=== PATIENT | male | born 1955 | race African-American/Black ===

== ENCOUNTER 2019-05-17 09:13 | Inpatient (IN) | payer OTHER ==
[~2019-05-17] VITALS: Ht 180.3 cm; Wt 72.6 kg
[~2019-05-17 09:13] MED LIST: AUGMENTIN 875875 MG PO; GLUCOPHAGE500 MG PO; LISINOPRIL10 MG; NORCO 5-325 TA1 EACH PO
[2019-05-17 09:15] VITALS: BP 124/74
[2019-05-17 11:28] LABS: CALCIUM 9.4 mg/dL (8.5-10.1); POTASSIUM 4.3 mmol/L (3.5-5.1)
[2019-05-17 11:35] LABS: ALBUMIN 3.1 g/dL (3.4-5.0); DIRECT BILIRUBIN 0.2 mg/dL (<0.1-0.2)
[2019-05-17 11:40] LABS: ABSOLUTE NEUTROPHILS 14.8 thou/uL (1.4-8.2); BASOPHILS 0.9 % (0.0-2.0); EOSINOPHILS 0.5 % (0.0-3.0); HEMATOCRIT 41.2 % (42.0-52.0); HEMOGLOBIN 13.2 gm/dL (14.0-18.0); LYMPHOCYTES 7.3 % (24.0-44.0); MCH 23.4 pg (26.0-34.0); MCV 73.1 fL (80.0-100.0); MONOCYTES 6.5 % (1.0-8.0); PLATELET COUNT 330 thou/uL (150-400); POLYS 84.8 % (36.0-66.0); RBC 5.64 mil/uL (4.50-6.00); RDW 15.3 % (10.5-14.5); WBC 17.5 thou/uL (4.0-11.0)
[2019-05-17 13:47] LABS: URINE BLOOD NEGATIVE (Negative); URINE CLARITY CLEAR; URINE COLOR YELLOW; URINE GLUCOSE-RANDOM* 3+ (Negative); URINE KETONES 1+ (Negative); URINE LEUKOCYTES-REFLEX NEGATIVE (Negative); URINE NITRITE-REFLEX NEGATIVE (Negative); URINE PROTEIN (DIPSTICK) TRACE (Negative); URINE UROBILINOGEN >= 8.0 E.U./dl (0.2-1.0)
[2019-05-17 13:54] LABS: ICTOTEST (BILI CONFIRMATORY) Negative (Negative); URINE BILIRUBIN NEGATIVE (Negative)
[2019-05-17 14:09] VITALS: BP 124/70
[2019-05-17] MEDS ORDERED: HUMALOG100 UNIT/1 SUBQ (14:42)
[2019-05-17] MEDS ORDERED: NEURONTIN300 MG PO (14:43)
[2019-05-17] MEDS ORDERED: LANTUS SUBQ (14:43)
[2019-05-17 14:52] VITALS: BP 107/62
[2019-05-17 15:15] VITALS: BP 133/67
[2019-05-17 19:59] VITALS: BP 121/61
--- NOTE | 2019-05-17 20:25 | NUR ---
ASSSUMED CARE OF PATIENT APPROX 1600. PT A&oX4, VSS, DENIES PAIN. WOUND CARE IN TO SEE RIGHT TOE WOUND. PATIENT HAS NON PRODUCTIVE COUGH, LUNGS CLEAR. NO SIGNS OF DISTRESS. WILL CONTINUE TO MONITOR.
--- NOTE | 2019-05-18 02:39 | NUR ---
ASSUMED CARE OF PT AT 1900HRS. PT IS AOX4 AND LETS NEEDS BE KNOWN. FALL PRECAUTION IN PLACE. WOUND CARE COMPLETED AND PICTURES TAKEN. ABX TREATMENT CONTINUED. PT DENIED PAIN, NAUSEA OR SOA. PT WAS STEPHANI TO GET COMFORTABLE AND SLEEP PART OF THE SHIFT. VSS AND NO S/S OF ACUTE DISTRESS. WILL CONTINUE TO MONITOR.
--- NOTE | 2019-05-18 11:33 | NUR ---
Received awake on bed. Due medication
--- NOTE | 2019-05-18 13:02 | NUR ---
Received awake on bed. Due medications given as prescribed. On room air. Vital signs stable. On nothing per orem- pt informed and aware. A+Ox4. On blood sugar monitoring- taken and recorded accordingly, with sliding scale prescribed. With NS at 75cc/hr, infusing well at R FA. Pt able to ambulate with AO1. With wound at R big toe- dressing in place. Falls bundle in place. With relative at bedside. Ortho PA called- a/w MRI results, for possible OR today. Pt seen by Dr Marie, informed re: possible surgery- physician explained re: surgical procedure to patient and relative. Pt seen by Dr Fraga- explained procedure to them, consent to be signed. Pre-op staff informed that we are having issues printing consent, even went to the other brennan to print but still unable to print consent; pt went down, pre-op staff Sarha informed re: no consent signed prior to coming down to OR. To continue monitoring patient.
[2019-05-18 14:15] VITALS: BP 104/66
--- NOTE | 2019-05-18 14:25 | HC ---
[facility] [place] [address] CONSULTATION Name: EVE TAMEZ Renzo Room #: 459- ADM IN M.R.#: [id number] Admission: 05/17/19 Attend Phys: Umu Marie MD Discharge: Date of : 51 Report #: [id number] THIS REPORT FOR: cc: LAURA - No family physician/PCP LAURA - No family physician/PCP Cristobal Baca MD ~ CC: Umu Marie [facility] physician/PCP Jos Cristina DATE OF SERVICE: 05/17/2019 CHIEF COMPLAINT: Diabetic toe infection. HISTORY OF PRESENT ILLNESS: This is a 64-year-old male patient with a history of diabetes over the last 10 years, who has developed pain and swelling and drainage from his right great toe over the last 2-3 weeks, but more pronouncedly over the last several days. He denies any pain as he has significant peripheral neuropathy. Denies any fever or chills, but is concerned with the amount of swelling. PAST MEDICAL HISTORY: Positive for type 2 diabetes mellitus, hypertension and hypercholesterolemia. MEDICATIONS: Include Augmentin, Indiahoma, metformin, Lisinopril. ALLERGIES: No known drug allergies. SOCIAL HISTORY: Negative for alcohol or tobacco use. FAMILY HISTORY: Noncontributory. REVIEW OF SYSTEMS: CONSTITUTIONAL: The patient denies fever, chills, or weight loss. NEUROLOGICAL: The patient does have peripheral neuropathy. Denies focal weakness, numbness or tingling. EYES: The patient denies visual changes, redness, or drainage. ENT: The patient denies earache, nasal drainage, sore throat. CARDIOVASCULAR: The patient denies chest pain, palpitations or diaphoresis. PULMONARY: The patient denies cough or shortness of breath. GASTROINTESTINAL: The patient denies nausea, vomiting, diarrhea or abdominal pain. ORTHOPEDIC: The patient does complain of pain, swelling and drainage from his right great toe. GENITOURINARY: The patient denies frequency or urgency of urination. Denies dysuria. [facility] [address] [place] [address] CONSULTATION Name: EVE TAMEZ Room #: [address] [place] [address] [place] [facility].#: [id number] Admission: 05/17/19 Attend Phys: Umu Marie MD Discharge: Date of : 51 Report #: [id number] ENDOCRINE: The patient denies heat or cold intolerance, polydipsia, polyphagia, polyuria. PSYCHIATRY: The patient denies anxiety, irritability or depression. Other systems in a 14-point review of systems are negative. PHYSICAL EXAMINATION: VITAL SIGNS: At this time include temperature 36.9, pulse 109, respiratory rate 13, blood pressure 124/70. GENERAL: This is a well-developed male patient who appears to be in minimal distress. HEENT: Head normocephalic. Nose and throat are clear. NECK: Supple. LUNGS: Clear. HEART: Regular. ABDOMEN: Bowel sounds present. Soft, nontender. EXTREMITIES: Lower extremities demonstrate easily palpable distal pulses. He has a very swollen right great toe. The nail is absent. There is a separation between the distal portion of the toe and the distal nail bed with a large amount of purulent drainage from this area. I am able to probe this area. I cannot directly probe to bone, but it does appear to be close. There appears to be some maceration of the skin, once again significant swelling and possible fluctuance on the pad of the great toe. NEUROLOGIC: The patient is alert and oriented and appropriate. LABORATORY DATA: Include white blood cell count 17.5 with a hemoglobin 13.2, hematocrit 41.2. Sodium 131, potassium 4.3, chloride 95, CO2 26, BUN 9, creatinine 1.0, glucose is 259. Lactic acid 1.3, calcium is 9.4, total bilirubin 1.0, direct bilirubin 0.2, alkaline phosphatase 96, total protein 10.0, albumin is 3.1. CLINICAL IMPRESSION: 1. Cellulitis and wound infection to the right great toe. 2. Diabetes mellitus with peripheral neuropathy. 3. Possible abscess and osteomyelitis of the right great toe. Also, evidence of an acute comminuted intra-articular fracture of the distal phalanx of the great toe with fracture lines extending into the interphalangeal joint. Venous Doppler was obtained, which showed no evidence of DVT. 4. Hypertension. 5. Hyperlipidemia. 6. Diabetes mellitus with hyperglycemia. RECOMMENDATIONS: At this point in time, we will recommend dry gauze dressings for now. Recommend an MRI of the right foot. Recommend check sed rate and CRP. He will likely require some surgical intervention, will consult Orthopedics. He will need aggressive nutritional support for both wound healing and glycemic [address] [address] CONSULTATION Name: EVE TAMEZ Room #: 459-P [facility] IN M.R.#: [id number] Admission: 05/17/19 Attend Phys: Umu Marie MD Discharge: Date of : 51 Report #: [id number] control. We will check an arterial Doppler as well. I appreciate being asked to see the patient in consultation. <ELECTRONICALLY SIGNED> By: Cristobal Baca MD 05/18/19 1425 1652 0017 Cristobal Baca MD /nt
[2019-05-18 14:30] VITALS: BP 105/65
[2019-05-18 15:00] VITALS: BP 100/49
[2019-05-18 15:30] VITALS: BP 117/65
[2019-05-18 19:22] VITALS: BP 123/70
--- NOTE | 2019-05-19 01:59 | NUR ---
PT IS A/O X4.PT CARE ASSUMED WITH PT IN BED AND APPEARED TO BE SLEEPING.PT USES URINAL.PT HAD RT GREAT TOE AMPUTATED.DRESSING FROM SURGERY IN PLACE AND I/D/C.PT IS ACCUSCHECK ACHS.PT D/C IV ON RFA AND PRESENTLY HAS IV ON LT HAND WITH NS AT 100ML/HR.PT APPEARED TO BE IN NO DISTESS ,DENIED N/V.WILL CONTINUE TO MONITOR PER POC
[2019-05-19 06:12] LABS: HEMATOCRIT 35.3 % (42.0-52.0)
[2019-05-19 06:31] LABS: HEMOGLOBIN 10.9 gm/dL (14.0-18.0)
[2019-05-19 06:49] LABS: POTASSIUM 3.8 mmol/L (3.5-5.1)
[2019-05-19 07:50] VITALS: BP 128/73
--- NOTE | 2019-05-19 11:41 | NUR ---
Recommend obtain HgbA1C level to determine pts level glucose control.
--- NOTE | 2019-05-19 13:06 | NUR ---
PT ADMITTED RELATED TO TOE WOUND, DM. CM REVIEWED CHART AND SPOKE WITH CARE TEAM. CM MET WITH PT AT BEDSIDE THIS DAY. PT IS A&O X4. C MRCHARLENE INTRODUCED. 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 PT INDICATED THERE ARE 7 STEPS TO ENTER AND NO STEPS INSIDE. PT INDICATED HE HAD USED A CANE TO ASSIST WITH MOBILITY PIPE ORGAN MECHANIC. PT INIDCATED NO PCP OR HH HX. PT GIVEN A [facility] PACKET FOR FOLLOW UP CARES UPON DC. PT HAS MEDICARE PART A ONLY. PT INDICATED HE WOULD BE ABLE TO FILL ANY PERSCRIPTIONS HE MIGHT BE GIVEN UPON DC. PT INIDCATED HE PLANS TO RETURN HOME ONCE MEDICALLY STABLE. CM TO FOLLOW INIDCATED WITH DC PLANNING.
[2019-05-19 14:32] VITALS: BP 116/60
[2019-05-19 20:29] VITALS: BP 118/75
--- NOTE | 2019-05-19 22:12 | HC ---
[facility] [place] [address] CONSULTATION Name: EVE TAMEZ Room #: 459-P ADM IN M.R.#: [id number] Admission: 05/17/19 Attend Phys: Umu Marie MD Discharge: Date of : 51 Report #: [id number] THIS REPORT FOR: cc: LAURA - No family physician/PCP LAURA - No family physician/PCP Fran Pearl MD ~ CC: Umu Marie [facility] physician/PCP Jos Cristina DATE OF SERVICE: 05/18/2019 INFECTIOUS DISEASES CONSULTATION REASON FOR CONSULTATION: I was asked to evaluate concerning diabetic foot infection. HISTORY OF PRESENT ILLNESS: A 64-year-old with underlying diabetes. He has had right great toe wound for the last several weeks, which has progressively worsened along with swelling into the right foot and lower leg. We have been treating this with peroxide. No antibiotic therapy. Due to the increased pain and inability to ambulate, he presented to the Emergency Room for further evaluation. Denies any fever, chills or sweats. He has had no report of trauma. He is a known diabetic. Diabetic control has been poor. Denies any cardiac history, stroke or kidney disease. REVIEW OF SYSTEMS: A 10-point review of system was negative other than what has been described above. ALLERGIES: None known. MEDICATIONS: As noted on his MAR including metformin and lisinopril prior to his admission and currently on vancomycin and Zosyn. PAST MEDICAL HISTORY: Hypertension, diabetes, hyperlipidemia. FAMILY HISTORY: Noncontributory. SOCIAL HISTORY: Nonsmoker. No significant alcohol intake. He is retired from the school district. PHYSICAL EXAMINATION: VITAL SIGNS: He was afebrile and hemodynamically stable. GENERAL: He is alert and cooperative and pleasant, in no acute distress. EXTREMITIES: The right foot was dressed and dry. He is status post right first toe and head of the transmetatarsal amputation performed earlier today. He has [facility] [address] [place] [address] CONSULTATION Name: JOIEVE Muller Room #: 459[facility] IN [facility].#: [id number] Admission: 05/17/19 Attend Phys: Umu Marie MD Discharge: Date of : 51 Report #: [id number] some erythema involving the lower leg below the knee. Moderate tenderness in his lower leg region and 1+ edema. EYES: Without scleral icterus. MOUTH: Without mucositis. NECK: Supple, with no thyromegaly or mass. No palpable adenopathy. CHEST: Clear. HEART: Regular, without murmur, gallop or rub. ABDOMEN: Soft and nontender with no hepatosplenomegaly or mass. EXTERNAL GENITALIA AND RECTAL: Not performed. NEUROLOGIC: Cranial nerves were intact. Sensation in his left lower extremity was diminished to fine touch. Strength in his upper and lower extremities was symmetric and within normal limits. PSYCHIATRIC: Mood was normal. LABORATORY STUDIES: Reviewed. MICROBIOLOGY: Reviewed. MRI scan and ultrasound of the arteries involving the right lower extremity was reviewed. IMPRESSION: A 64-year-old with diabetes, peripheral neuropathy, presents with a right great toe osteomyelitis with associated abscess. So far, group B Streptococcus is the predominant pathogen. I am awaiting further culture results. He is postoperative day #1 from amputation of the right first toe and metatarsal head performed by Dr. Tone Fraga. RECOMMENDATIONS: We will continue IV antibiotic therapy. We will arrange home IV therapy or long term therapy once cultures are back. He will need IV access for post-acute care. He will require close diabetic management and wound care. <ELECTRONICALLY SIGNED> By: Fran Pearl MD 05/19/19 2212 [id number] 0012 Fran Pearl MD /nt
--- NOTE | 2019-05-20 03:49 | NUR ---
Pt. rested quietly at intervals during the night when checked on during frequent rounds. He offers no c/o pain. Dressing to right lower extremity is dry and intact. Bed alarm is on.
[2019-05-20 08:02] VITALS: BP 153/84
[2019-05-20 10:01] LABS: ABSOLUTE NEUTROPHILS 12.8 thou/uL (1.4-8.2); BASOPHILS 0.6 % (0.0-2.0); EOSINOPHILS 1.4 % (0.0-3.0); HEMATOCRIT 36.4 % (42.0-52.0); HEMOGLOBIN 11.4 gm/dL (14.0-18.0); LYMPHOCYTES 9.5 % (24.0-44.0); MCH 23.1 pg (26.0-34.0); MCHC 31.5 g/dL (28.0-37.0); MCV 73.3 fL (80.0-100.0); MONOCYTES 6.3 % (1.0-8.0); PLATELET COUNT 329 thou/uL (150-400); POLYS 82.2 % (36.0-66.0); RBC 4.96 mil/uL (4.50-6.00); WBC 15.6 thou/uL (4.0-11.0)
[2019-05-20 10:15] LABS: CALCIUM 8.4 mg/dL (8.5-10.1); CREATININE 0.9 mg/dL (0.7-1.3)
--- NOTE | 2019-05-20 13:21 | NUR ---
SAAD reviewed chart and spoke with nursing and attending physician. Pt is s/p toe amputation. Pt is progressing well towards goals for discharge. Discharge home is anticipated for tomorrow. Pt will need services for dressing changes. SAAD met with pt and s/o, Nanette, at bedside. Pt and s/o were unaware of anticipated discharge. SAAD explained HH services. Pt is agreeable. Options discussed with pt. No preference voiced for HH provider. Pt's s/o asked about meeting with someone to discuss Medicaid application. Pt only has Medicare Part A. No Part B or Part D. Pt has diabetes and will need assistance with medications. SA[facility] and requested [facility] to follow up with pt's s/o. planner intern to fax referral to [facility] for review. SAAD is following to assist as needed with discharge planning.
--- NOTE | 2019-05-20 15:42 | NUR ---
FAXED REFERRAL TO [facility] SPOKE WITH EDWIN IN INTAKE SHE RECEIVED REFERRAL AND CAN ACCEPT BUT PT WILL NEED PCP TO FOLLOW. NOTIFIED SW (CLEMENTINA) AND SHE WILL LOOK INTO THIS. ANTICIPATE DC TOMORROW.
[2019-05-20 20:30] VITALS: BP 108/55
--- NOTE | 2019-05-20 20:44 | NUR ---
PT A&oX4, VSS, PAIN IN RIGHT FOOT. DRESSING CHANGED TO RIGHT FOOT. FAMILY AT BEDSIDE. NO SIGNS OF DISTRESS. WILL CONTINUE TO MONITOR.
--- NOTE | 2019-05-20 23:06 | PATH ---
[facility] [address] [place] [address] PATHOLOGY RPT PROCEDURE Name: JOIEVE Muller Room #: 459-P ADM IN M.R.#: [id number] Admission: 05/17/19 Date of : 51 Discharge: Report #: [id number] Path Case #: [id number] [facility] Accession Number: [id number] . 01 Material submitted: . toe - RIGHT GREAT TOE. Modifiers: right . 01 Clinical history: . Osteomyelitis right great toe . 02 Diagnosis: Bone "right great toe", amputation: - Skin with deep penetrating ulceration with gangrenous-type of necrosis with acute inflammation and microabscess formation extending into the underlying bone with acute and chronic osteomyelitis. - See comment. LBQ 05/20/2019 2210 Local . 02 Comment: The inked bone margins appear viable without any evidence of acute inflammation. However, the dermis of the skin black ink margin reveals acute inflammation and gangrenous-type of necrosis. Suggest clinical correlation and follow-up. (SANAZ/db; 05/20/2019) . 02 Electronically signed: . Stanton Monroy MD, Pathologist NPI- [id number] . 01 Gross description: . The specimen is received in formalin, labeled "Eve Tamez, right great toe". Received is an amputated digit measuring 6.3 x 3.6 x 3.5 cm in greatest dimensions. The bone margin is smooth and concave in appearance, consistent with disarticulation. The bone and soft tissue margins are inked black. The nail is absent. At the distal aspect of the specimen, there is a poorly circumscribed, irregular in contour and white-lopez to light brown lesion measuring 2.8 x 1.5 cm, which is 2.0 cm from the closest skin margin. On the lateral aspect of the specimen, there is a secondary lesion which is well from, depressed and joaquin-lopez measuring 3.0 x 1.1 cm, which is 1.3 cm from the closest skin margin. A full-thickness longitudinal cross-section is submitted from proximal to distal aspects in cassettes A1 through A3, following decal six. . Also received within the specimen container is an additional segment of bone displaying one smooth disarticulation margin and one blunt transected margin, measuring 2.4 x 2.3 x 1.5 cm in greatest dimensions. The transected margin is inked black. A full-thickness [place] [address] PATHOLOGY RPT PROCEDURE Name: EVE TAMEZ Room #: 459-P ADM IN M.R.#: [id number] Admission: 05/17/19 Date of : 51 Discharge: Report #: [id number] Path Case #: [id number] submitted in cassette A4, following decalcification. (CAA; 05/19/2019) QAC/QAC 05/20/2019 1530 Local . 02 Pathologist provided ICD-10: I96, M86.171, M86.671 . 02 CPT . 193847, [id number] Specimen Comment: A courtesy copy of this report has been sent to [phone] Specimen Comment: Report sent to DR LIN Performed at: [address], [place] [id number] MD Ranjith Martinez MD Phone: [phone] Performed at: [address], [place], [place] [id number] MD Angelica Cervantes MD Phone: [phone]
--- NOTE | 2019-05-21 03:03 | NUR ---
Pt. rested quietly all shift when checked on during frequent rounds. He offers no c/o pain. Dressing to his right lower extremity is dry and intact. Bed alarm is on.
[2019-05-21 08:03] VITALS: BP 135/83
--- NOTE | 2019-05-21 13:06 | NUR ---
VASCULAR ACCESS NURSE ROUNDING THIS AM TO PLACE PICC ORDERED AT 0900. THE PATIENT WAS CONCERNED HE HAD NOT BEEN INFORMED HE WAS GETTING A PICC AND REFUSED THE LINE AT THIS TIME UNTIL CLARIFICATIONS CAN BE MADE. PATIENT STATED HE WAS NOT AWARE OF HOME IV ANTIBIOTICS OR HOME HEALTH PLANS. SPOKE TO SHELLY SAMANIEGO AND SHE IS TO CALL IV TEAM LATER TODAY IF PATIENT CONSENTS TO LINE PLACEMENT.
[2019-05-21] MEDS ORDERED: ACIDOPHILUS1 EAC4 PO (14:10)
[2019-05-21] MEDS ORDERED: BENZONATATE100 MG PO (14:10)
[2019-05-21] MEDS ORDERED: GLIPIZIDE 10 MG10 MG PO (14:10)
[2019-05-21] MEDS ORDERED: LANTUS SUBQ (14:10)
--- NOTE | 2019-05-21 16:27 | NUR ---
CM FOLLOWED UP WITH PT AND SPOUSE THIS AM AND DISCUSSED HOME INFUSION, OUTPAITNET INFUSION, SKILLED OPTIONS. CM SENT REFERRAL TP [facility] WITH THEIR PERMISSION AND THEY WOULD OWE $60.00 PER DAY FOR HOME INFUSION. PT AND SPOUSE INDICATED THEY PREFERRED PT GO SKILLED UPON DC. REFERRALS SENT TO [facility], [facility], [facility]. [facility] INDICATED THEY COULD ACCEPT PT. CM NOTIFIED SPOUSE SHE IS AWARE AND AGREEABLE. [phone]. CHART COPY ORDERED. ORDERS TO BE FAXED. REPORT TO BE CALLED TO . NO OTHER CM INTERVENTION INDICATED. CASE CLOSED.
--- NOTE | 2019-05-21 17:09 | NUR ---
CONSULTED TO PLACE A PICC. AFTER CONSENT WAS SIGNED AND RISK AND BENIFITS DISCUSSED A #4F SINGLE LUMEN POWER PICC WAS PLACED AFTER A BEDSIDE TIMEOUT WAS COMPLETED. THE LINE WAS TRIMMED TO 44CM AND ADVANCED WITHOUT DIFFICULTY. A STAT CHEST XRAY WAS ORDERED FOR CONFIRMATION
--- NOTE | 2019-05-21 21:12 | NUR ---
Received awake on bed. Due medications given as prescribed, able to swallow meds w/o difficulty. On room air. Vital signs stable. On carb controlled diet; pt needs encouragement in eating and drinking. On blood sugar monitoring, taken and recorded accordingly; with sliding scale insulin prescribed. Able to use urinal and go to the bathroom using walker, standby assist and gait belt. With SL at L hand- intact and flushing well, on IV antibiotics. With dressing on R great toe- dressing changed today. Visited by his today. Falls bundle in place. Asssisted in ADLs. Pt for PICC line insertion, IV nurse went to insert line but pt said he is not aware and physician did not it to him, unable to obtain consent; as per IV nurse a/w physician rounds then will come back to insert PICC line. Pt complained of cough- Dr Marie informed. Pt seen and examined, complaints addressed to physican. CM went to talk to pt and his . PICC line place this afternoon by IV nurse. Staff nurse Martin took over patient's care at 1500. Report given to Staff Lemus for pt's facility as nurse who took over just had the patient from 1500 only.
--- NOTE | 2019-05-24 14:29 | O ---
[facility] [place] [address] OPERATIVE REPORT Name: EVE TAMEZ Renzo Room #: 459-P [facility] IN M.R.#: [id number] Admission: 05/17/19 Attend Phys: Umu Marie MD Discharge: 05/21/19 Date of : 51 Report #: [id number] THIS REPORT FOR: cc: LAURA - No family physician/PCP LAURA - No family physician/PCP Tone Fraga MD ~ CC: Umu Marie [facility] physician/PCP Jos Cristina DATE OF SERVICE: 05/18/2019 PREOPERATIVE DIAGNOSIS: Right great toe osteomyelitis. POSTOPERATIVE DIAGNOSIS: Right great toe osteomyelitis. PROCEDURE: Right great toe amputation through the metatarsal distally. SURGEON: Dr. Tone Fraga. ANESTHESIA: General. ESTIMATED BLOOD LOSS: Minimal. DRAINS: No drains. TOURNIQUET TIME: 30 minutes. DESCRIPTION OF PROCEDURE: The patient brought to the operating room where he was placed under general anesthesia. Once under adequate general anesthesia, his right lower extremity was prepped and draped in sterile manner. The extremity was elevated and tourniquet placed to 250 mmHg. A racquet-shaped incision was made about the base of the proximal phalanx of the great toe extending proximally along the metatarsal approximately 3 cm. This was sharply dissected down to the base of the proximal phalanx, which was then sharply exposed and the collateral ligaments and plantar plate were released with a 15 blade. The toe was then completely extracted. Each of the sesamoid was identified and subsequently removed as well with a large rongeur. A sagittal saw was used to transect and resect the head of the first metatarsal. Once complete, the wound was irrigated copiously with normal saline solution. A Florecita drain was placed and 2-0 nylon suture was used to close the wound. The wound was dressed with Xeroform, 4 x 4s, and sterile soft compressive dressing was placed. Tourniquet was let down at approximately 30 minutes. Toes were pink and warm with good capillary refill. There were no complications from the [address] [address] OPERATIVE REPORT Name: EVE TAMEZ Room #: 459-P [facility]#: [id number] Admission: 05/17/19 Attend Phys: Umu Marie MD Discharge: 05/21/19 Date of : 51 Report #: [id number] procedure. The patient tolerated the procedure well and was taken to recovery room without incident. <ELECTRONICALLY SIGNED> By: Tone Fraga MD 05/24/19 1429 1325 1332 Tone Fraga MD /nt
== END 2019-05-21 18:20 | DRG 616 ==
LOC: ER 09:13 → 4W 14:27 → EROBS 14:27 → 4W 14:33
PROVIDERS: Emergency Medicine; Orthopaedic Surgery Foot and Ankle Surgery; ADMIT Hospitalist
PROC: 0Y6P0Z0 Detachment at Right 1st Toe, Complete, Open Approach (ICD-10-PCS; principal; 2019-05-17)
PROC: 05HY33Z Insertion of Infusion Device into Upper Vein, Percutaneous Approach (ICD-10-PCS; 2019-05-21)
DX: E11.69 Type 2 diabetes mellitus with other specified complication (principal); E43 Unspecified severe protein-calorie malnutrition; M86.171 Other acute osteomyelitis, right ankle and foot; L02.611 Cutaneous abscess of right foot; S92.421A Displaced fracture of distal phalanx of right great toe, initial encounter for closed fracture; X58.XXXA Exposure to other specified factors, initial encounter; E11.621 Type 2 diabetes mellitus with foot ulcer; L03.031 Cellulitis of right toe; E11.65 Type 2 diabetes mellitus with hyperglycemia; E11.42 Type 2 diabetes mellitus with diabetic polyneuropathy; I10 Essential (primary) hypertension; E78.00 Pure hypercholesterolemia, unspecified; L97.509 Non-pressure chronic ulcer of other part of unspecified foot with unspecified severity; E78.5 Hyperlipidemia, unspecified; Y99.8 Other external cause status; Y93.89 Activity, other specified; Z83.3 Family history of diabetes mellitus; Z82.49 Family history of ischemic heart disease and other diseases of the circulatory system; Z79.84 Long term (current) use of oral hypoglycemic drugs; Z79.891 Long term (current) use of opiate analgesic; Z79.899 Other long term (current) drug therapy; Z91.14 Patient's other noncompliance with medication regimen; Y92.89 Other specified places as the place of occurrence of the external cause; Z79.2 Long term (current) use of antibiotics
CPT/HCPCS: 10047; 27000; 50010; 50101; 50386; 56525; 56527; 57091; 62110; 62850; 70005

== ENCOUNTER 2019-11-26 14:29 | Emergency (ER) | payer OTHER ==
[~2019-11-26] VITALS: Ht 180.3 cm; Wt 77.6 kg
[~2019-11-26 14:29] MED LIST changes: +ACIDOPHILUS1 EAC4 PO; +BENZONATATE100 MG PO; +GLIPIZIDE 10 MG10 MG PO; +HUMALOG100 UNIT/1 SUBQ; +LANTUS SUBQ; +NEURONTIN300 MG PO
[2019-11-26 15:41] LABS: BE(vivo) -0.2 mmol/L (-2 to +3); HCO3 25.1 mmol/L (22.0-26.0); PCO2 VENOUS 43.4 mmHg (41.0-51.0); PO2 VENOUS 41.6 mmHg (35.0-45.0)
[2019-11-26 15:43] LABS: ABSOLUTE NEUTROPHILS 4.6 thou/uL (1.4-8.2); BASOPHILS 0.9 % (0.0-2.0); EOSINOPHILS 2.4 % (0.0-3.0); HEMATOCRIT 39.2 % (42.0-52.0); HEMOGLOBIN 12.8 gm/dL (14.0-18.0); LYMPHOCYTES 23.1 % (24.0-44.0); MCH 24.8 pg (26.0-34.0); MCHC 32.7 g/dL (28.0-37.0); MCV 75.9 fL (80.0-100.0); MONOCYTES 7.2 % (1.0-8.0); PLATELET COUNT 258 thou/uL (150-400); POLYS 66.4 % (36.0-66.0); RBC 5.17 mil/uL (4.50-6.00); RDW 15.3 % (10.5-14.5)
[2019-11-26 16:09] LABS: ALBUMIN 3.3 g/dL (3.4-5.0); CALCIUM 8.6 mg/dL (8.5-10.1); CREATININE 1.4 mg/dL (0.7-1.3); POTASSIUM 4.2 mmol/L (3.5-5.1); TOTAL BILIRUBIN 0.4 mg/dL (0.2-1.0)
[2019-11-26 17:07] LABS: URINE BILIRUBIN NEGATIVE (Negative); URINE BLOOD TRACE (Negative); URINE CLARITY CLEAR; URINE COLOR YELLOW; URINE GLUCOSE-RANDOM* 3+ (Negative); URINE KETONES NEGATIVE (Negative); URINE NITRITE-REFLEX NEGATIVE (Negative); URINE PROTEIN (DIPSTICK) NEGATIVE (Negative); URINE UROBILINOGEN 0.2 E.U./dl (0.2-1.0)
[2019-11-26 17:08] LABS: URINE LEUKOCYTES-REFLEX 1+ (Negative)
[2019-11-26 17:18] LABS: YEAST-REFLEX Present (None Seen)
[2019-11-26 17:19] LABS: CASTS None Seen /LPF (None Seen); SQUAMOUS 0-3 Few /LPF (0-3); URINE WBC-REFLEX 6-15 Few /HPF (0-5)
[2019-11-26 17:20] LABS: CRYSTALS None Seen /LPF (None Seen); URINE RBC 0-2 Rare /HPF (0-2)
[2019-11-26] MEDS ORDERED: KEFLEX500 M1 PO (17:38)
[2019-11-26] MEDS ORDERED: HUMALOG100 UNIT/1 SUBQ (17:38)
[2019-11-26] MEDS ORDERED: LANTUS SUBQ (17:38)
[2019-11-26 18:12] VITALS: BP 141/86
== END 2019-11-26 18:14 | disposition home or self-care (01) ==
LOC: ER 14:29
PROVIDERS: Physician Assistant
DX: S92.422A Displaced fracture of distal phalanx of left great toe, initial encounter for closed fracture (principal); E11.65 Type 2 diabetes mellitus with hyperglycemia; I10 Essential (primary) hypertension; E78.00 Pure hypercholesterolemia, unspecified; Z91.14 Patient's other noncompliance with medication regimen; Z79.899 Other long term (current) drug therapy; Z79.4 Long term (current) use of insulin; X58.XXXA Exposure to other specified factors, initial encounter; Y93.89 Activity, other specified; Y92.89 Other specified places as the place of occurrence of the external cause; Y99.9 Unspecified external cause status

== ENCOUNTER 2019-12-24 09:04 | Inpatient (IN) | payer OTHER ==
[~2019-12-24] VITALS: Ht 180.3 cm; Wt 76.7 kg
[~2019-12-24 09:04] MED LIST changes: +KEFLEX500 M1 PO
[2019-12-24 09:13] VITALS: BP 141/86
[2019-12-24] MEDS ORDERED: HUMALOG100 UNIT/1 SUBQ (09:30)
[2019-12-24 11:50] LABS: ABSOLUTE NEUTROPHILS 5.3 thou/uL (1.4-8.2); BASOPHILS 0.8 % (0.0-2.0); EOSINOPHILS 2.5 % (0.0-3.0); HEMATOCRIT 36.3 % (42.0-52.0); HEMOGLOBIN 11.7 gm/dL (14.0-18.0); LYMPHOCYTES 25.9 % (24.0-44.0); MCH 24.1 pg (26.0-34.0); MCHC 32.2 g/dL (28.0-37.0); MONOCYTES 7.9 % (1.0-8.0); PLATELET COUNT 306 thou/uL (150-400); POLYS 62.9 % (36.0-66.0); RBC 4.84 mil/uL (4.50-6.00); WBC 8.4 thou/uL (4.0-11.0)
[2019-12-24 11:55] LABS: CALCIUM 8.8 mg/dL (8.5-10.1); CREATININE 0.8 mg/dL (0.7-1.3); POTASSIUM 3.9 mmol/L (3.5-5.1)
[2019-12-24 12:01] LABS: ALBUMIN 2.9 g/dL (3.4-5.0); TOTAL BILIRUBIN 0.4 mg/dL (0.2-1.0); TOTAL PROTEIN 8.1 g/dL (6.4-8.2)
[2019-12-24 14:12] VITALS: BP 130/84
[2019-12-24 14:21] VITALS: BP 141/82
[2019-12-24 15:10] VITALS: BP 145/80
--- NOTE | 2019-12-24 17:29 | NUR ---
Patient arrived on the floor around 1445, vomitted around 1500, watery with small amount of dark brown color stuff, small volume. voiced that the patient had not eaten anything since the morning and that she thought it might be the vancomycin the patient was getting through IV caused the nausea; the and patient voiced that the IV Vancomycin be kept running. Zofran given at 1509, about 40 minutes later, the patient vomitted again, the similar volume and content; according to the patient, he had some can fruit from the gallary before the vomitting. The asked the staff to stop IV Vancomycin. The staff paged Dr. Rush twice, awaiting for the response. According to the , the patient had reported the vomitting and concern of vancomycin to Dr. Pearl.
--- NOTE | 2019-12-24 17:50 | NUR ---
Called [phone], was told it was not the right number to find Dr. Ryanne Harp.
--- NOTE | 2019-12-24 18:37 | NUR ---
Vancomycin infusion was stopped due to the request from the patient and the due to the concern that the vancomycin infusion might be the cause of the voimitting. The volume that had been infused is about 150 ml. Patient denied n/v after IV vancomycin infustion was stopped. Patient reported that he had a hamburg for dinner, no n/v. Tried to call fish processing supervisor because the staff failed to get in touch with Dr. Rush and Dr. Pearl, no response yet, will try again.
--- NOTE | 2019-12-24 18:41 | NUR ---
According to the patient and the , patient had not urinated since 7am in the [facility]. patient voiced that he had not drunk much. Bladder scan was done, residual was 277 ml, paged Dr. Rush, no response yet.
[2019-12-24 20:12] VITALS: BP 109/70
[2019-12-25 06:03] LABS: CALCIUM 8.6 mg/dL (8.5-10.1); CREATININE 0.9 mg/dL (0.7-1.3); POTASSIUM 3.7 mmol/L (3.5-5.1)
[2019-12-25 06:22] LABS: HEMATOCRIT 35.3 % (42.0-52.0); HEMOGLOBIN 11.4 gm/dL (14.0-18.0); MCH 24.3 pg (26.0-34.0); MCHC 32.2 g/dL (28.0-37.0); MCV 75.4 fL (80.0-100.0); RBC 4.68 mil/uL (4.50-6.00); RDW 14.8 % (10.5-14.5); WBC 7.4 thou/uL (4.0-11.0)
[2019-12-25 07:34] VITALS: BP 121/76
[2019-12-25 11:53] VITALS: BP 121/76
--- NOTE | 2019-12-25 15:51 | NUR ---
ASSUMED CARE OF PATIENT AT SHIFT CHANGE. ASSESSMENT CHARTED. MEDS GIVEN PER MAR. VSS; PATIENT IS NOT COMPLIANT W TX FOR DM, ORTHO WAS CONSULTED FOR TOE AMPUTATION. DENIES PAIN. FAMILY AT BEDSIDE. VOICES NO OTHER NEEDS. WILL CONTINUE TO MONITOR
[2019-12-25 16:00] VITALS: BP 137/71
--- NOTE | 2019-12-25 16:18 | NUR ---
ASSUMED CARE OF PATIENT THIS AM. ASSESSMENT CHARTED. MEDS GIVEN PER MAR. VSS, FSBG ELEVATED. PATIENT IS NOT COMPLIANT WITH TX FOR DM. ORTHO WAS CONSULTED FOR L GREAT TOE AMPUTATION. UP SBA W NO ISSUES. DENIES PAIN, MAKES NEEDS KNOW. VOICES NO OTHER CONCERNS AT THIS TIME. WILL CONTINUE TO MONITOR AND FOLLOW POC
[2019-12-25 20:10] VITALS: BP 128/54
--- NOTE | 2019-12-26 02:31 | NUR ---
VSS-AFEBRILE. C/O SIGNIFICANT LEFT FOOT PAIN. PAIN IS WELL RELIEVED WITH ORAL PAIN MEDS, AND IV MEDICATION FOR BREAKTHROUGH PAIN. VOIDING WITHOUT DIFFICULTY. FALL PRECAUTIONS IN PLACE, CALLS APPROPRIATELY FOR ANY NEEDED ASSISTANCE.
[2019-12-26 10:20] VITALS: BP 164/90
[2019-12-26 21:51] VITALS: BP 129/76
--- NOTE | 2019-12-27 03:10 | NUR ---
care assumed at 1900 patient was in bed asleep. patient left leg dressing is c/d/i. patient was calm and cooperative with meds and care.patient in bed asleep at this time breathing regular and unlaboured.
--- NOTE | 2019-12-27 09:06 | NUR ---
Assumed patient care at 0715. Vital signs stable, LSCTA, ABD soft and non-tender, BS x's 4. No complaints of pain during am Assessment. Pleasant and cooperative.
--- NOTE | 2019-12-27 15:08 | NUR ---
PT ADMITTED RELATED TO OSTEOMYELITIS, FAILED OP TX, DM, NON-COMPLIANT. CM REVIEWED CHART AND SPOKE WITH CARE TEAM. CM CALLED AND SPOKE WITH PT THIS DAY. PT APPEARED TO BE A&O X4. CM ROLE INTRODUCED. PT INDICATED HE HAD BEEN LIVING IN AN APARTMENT WITH HIS SON AND HIS GF WHO IS A NURSE. HE INDICATED THERE ARE 3 STEPS TO ENTER AND NONE INSIDE. HE INDICATED ALL NEEDS ON 1 LEVEL. PT INDICATED HE PLANS TO GO TO HIS 'S HOUSE UPON DISCHARGE THAT ALSO HAS 3 STEPS TO ENTER. PT INDICATED HIS IS AWARE AND AGREEALBE WITH HAVING HIM THERE UPON DC. CM TOFOLLOW INDICATED WITH DC PLANNING.
[2019-12-27 20:06] VITALS: BP 154/93
--- NOTE | 2019-12-28 05:43 | NUR ---
Pt. rested quietly at intervals during the night when checked on during frequent rounds. He did c/o a headache and po tylenol given with some relief noted. Up with standby assistance and cane.
[2019-12-28 07:30] VITALS: BP 151/95
--- NOTE | 2019-12-28 11:35 | NUR ---
The staff called answer service and left a message for Dr. Fraga about the patient around 1105 am, no response yet; the staff called [phone] at 1130am, no answer yet. will keep trying.
--- NOTE | 2019-12-28 12:17 | NUR ---
Ortho service Kim voiced that she had went through the patient's chart,had not had the chance to meet the patient in person. The patient is on the way to MRI when Kim comes to see him. Kim stated that they would decide if the patient would need amputation based on the result of MRI. The surgery, if necessary, might be tomorrow or the day after tomorrow; Kim is aware of COVID test need.
--- NOTE | 2019-12-28 15:08 | NUR ---
DYLAN SPOKE WITH NURSE CLARENCE AND SHE INDICATED THAT SHE HAD HEARD FROM ORTHO PLASTERER TENDER WHO STATED THAT THEY WOULD REVIEW MRI AND DETERMINE IF ANY FURTHER INTERVENTION IS INDICATED. DYLAN ASKED IF THEY WANTED A COVID TEST ORDERED AND CLARENCE SAID THEY TOLD HER THEY WOULD DETERMINE THAT ONCE THEY READ THE MRI RESULTS. CM TO FOLLOW INDICATED WITH DC PLANNING.
[2019-12-28 16:04] VITALS: BP 142/80
[2019-12-28 19:33] VITALS: BP 151/80
--- NOTE | 2019-12-29 06:52 | NUR ---
PT IS A/O X4. NO C/O PAIN OR DISCOMFORT. VSS. PT VOIDS PER URINAL AND IS ABLE TO MAKE NEEDS KNOWN. FALL PRECAUTIONS ARE IN PLACE, CALL LIGHT IS WITHIN REACH.
[2019-12-29 08:05] VITALS: BP 139/85
[2019-12-29 14:50] VITALS: BP 130/77
--- NOTE | 2019-12-29 18:55 | NUR ---
ASSUMED CAR OF PATIENT AT SHIFT CHANGE. ASSESSMENT CHARTED. MEDS GIVEN PER JUN. VSS. FSBS STABLE BUT ELEVATED; PRN AND SCHEDULED INSULIN ADMINISTERED. DENIES PAIN. IV ABX INFUSING PER ORDERS. SURGERY IS SCHEDULED FOR FRIDAY. PATIENT UP INDEPENDENTLY W NO ISSUES. WILL CONTINUE TO MONITOR
[2019-12-29 19:47] VITALS: BP 133/68
--- NOTE | 2019-12-30 05:18 | NUR ---
patient had a showel this shift.patient left great toe is black in color no odor or discharge noted. patient had a bowel movement this shift. fall precaution inplace. patient in bed asleep at this time breathing regular and unlaboured.
[2019-12-30 07:34] VITALS: BP 149/87
--- NOTE | 2019-12-30 10:34 | NUR ---
COVID TEST PCR SENT DOWN TO LAB AT 1010
[2019-12-30 11:00] VITALS: BP 149/87
--- NOTE | 2019-12-30 14:24 | NUR ---
PT IS TO HAVE AMPUTATION OF LEFT GREAT TOE TOMORROW Friday12/30/19. PT AND OT HAD VARIANCED PT OF THIS NOTE. PT IS SBA WITH CANE WITH NURSING OF RIGHT NOW. CARE TEAM HAD INDICATED THAT PT IS TO TRANSFER TO 4S POST OP. PT AND OT WILL LIKELY NEED TO ASSESS AFTER SURGERY AND DETERMINE NEEDS UPON DISCHARGE HH VS. SNF. PT HAD BEEN TO [facility] IN THE PAST AND SPOUSE INDICATED THEY DON'T WANT PT GOING BACK THERE. CM TO FOLLOW INDICATED WITH DC PLANNING.
[2019-12-30 15:35] VITALS: BP 144/73
--- NOTE | 2019-12-30 16:43 | NUR ---
ASSUMED CARE OF PATIENT THIS AM. ASSESSMENT CHARTED. MEDS GIVEN PER MAR. VSS. PATIENT IS A&OX4 MAKES NEEDS KNOWN, INDEPENDENT AND USES URINAL. FSBS ELEVATED; PRN INSULIN ADMINISTERED W SCHEDULED INSULIN. NEW IV PUT IN BY MNU CLINICAL INSTRUCTOR. DENIES PAIN. VOIDS WELL. COVID TEST IS NEGATICE, WILL BE NPO AFTER MIDNIGHT FOR L GREAT TOE AMPUTATION. CONSENT SIGNED. VOICES NO OTHER NEEDS AT THIS TIME. WILL CONTINUE TO MONITOR AND FOLLOW PLAN OF CARE
[2019-12-30 19:10] VITALS: BP 157/76
--- NOTE | 2019-12-30 20:46 | NUR ---
REQUESTED SOMETHING FOR PAIN, AND THEN DECLINED WHEN BROUGHT TO BEDSIDE. OFFERED ORAL MEDICATION, THAT WAS ALSO DECLINED.
[2019-12-31 07:53] VITALS: BP 144/86
[2019-12-31 08:25] VITALS: BP 144/86
--- NOTE | 2019-12-31 08:31 | NUR ---
ASSUMED CARE OF PATIENT NOW. ASSESSMENT CHARTED. MEDS HELD FOR NPO STATUS. REPORT GIVEN TO COSME AT OR. VOICES NO OTHER NEEDS WILL CONTINUE TO MONITOR
--- NOTE | 2019-12-31 13:04 | NUR ---
REPORT GIVEN TO BRITTNEE SAMANIEGO PRIOR TO ARRIVAL TO 4S; 437. PERSONAL BELONGINGS IN RM, QS TASKS COMPLETE.
--- NOTE | 2019-12-31 13:40 | NUR ---
PATIENT TRANFERRED TO 4 S ROOM 437 PT ALERT XS4. ORDERED CARB CONTROL DIET LUNCH. V.S 97.9 20 72 145/79 RIGHT ARM O2 SAT 99% RA. PT ARRIVED AT 1330. PT W/O PAIN OR RESP DISTRESS. LEFT GREAT TOE AMPUTATION WITH GAUZE AND NAVA WRAP DRESSING INTACT.
--- NOTE | 2019-12-31 16:45 | NUR ---
PT HAD TOE AMP TODAY. AWAIT PT AND OT EVALS TO DETERMINE NEEDS UPON DC. PT HAD INDICATED HE PLAND TO GOT TO HIS SPOUSES HOUSE UPON DC HER ADDRESS IN IN A PREVIOUS CM NOTE. IF PT NEEDS HOME HEALTH AND IS MEDICALLY STABLE TO DC OVER WEEKEND SEND REFERRAL TO [facility] FAX TO [phone]. CM TO FOLLOW INDICATED WITH DC PLANNING.
[2019-12-31 20:00] VITALS: BP 125/70
[2020-01-01 03:40] VITALS: BP 105/51
--- NOTE | 2020-01-01 03:45 | NUR ---
PT SITTING IN THE CHAIR AT THE START OF SHIFT. HE IS ALERT AND ORIENTED X 4. POSPT OP DRSG TO L FOOT.AMBULATES WELL IN ROOM. AFEBRILE AND ON ROOM AIR. DENIES PAIN.BLOOD SUGARS STILL ON THE HIGHER SIDE. HE CALLS WITH NEEDS. CONTINUES ON IV ABTS.
[2020-01-01 13:58] VITALS: BP 105/51
--- NOTE | 2020-01-01 14:27 | NUR ---
PT IS A&OX4, VSS, UP AND AD RADHA, IN PLEASANT MOOD. PT IS ACHS, ON A CARB CONTROL DIET, LAST BM 12/31/19 PER PT. THERE IS NO PAIN PER PATIENT. PT IS ON STAND AND SLIDING SCALE LISPRO. PT HAS NEVER FALLEN. PT WILL WORK WITH PATIENT TODAY. WILL CONTINUE TO MONITOR.
[2020-01-01 15:30] VITALS: BP 130/68
--- NOTE | 2020-01-02 02:07 | NUR ---
PT IS PLEASANT AND COOPERATIVE.STUMP DRSG TO LEFT FOOT IS INTACT. PT DENIES PAIN. CONTINUES ON IV ABTS WELL FLUIDS. VOIDS WELL PER URINAL.DENIES ANY CONCERNS AT THIS TIME. ANTCIPATING DISCHARGE HOME TOMORROW.
[2020-01-02 08:08] VITALS: BP 117/67
[2020-01-02 16:49] VITALS: BP 127/73
--- NOTE | 2020-01-02 18:54 | NUR ---
ASSUMMED PT CARE AT APPROXIMATELY 0700. PT A&O X4. ASSESSMENT CHARTED. FALL PRECAUTIONS IN PLACE. PT DENIES HAVING CHEST PAIN. PT DENIES HAVING SOB. PT DENIES HAVING ACUTE PAIN. PT COMFORTABLE. PT UP IN CHAIR THROUGHOUT SHIFT. PT DENIES HAVING FURTHER CONCERNS. BLOOD SUGAR STABLE. VITAL SIGNS STABLE.
[2020-01-02 19:17] VITALS: BP 116/73
--- NOTE | 2020-01-03 04:56 | NUR ---
CARE ASSUMED 190. PT ALERT AND ORIENTED. VITALS STABLE. ASSESSMENTS DOCUMENTED. DENIES PAIN. LEFT FOOT, SURGICAL DRESSING INTACT. DENIES CHEST PAIN OR SOB. UP ADLIB. VOIDING PER URINAL OVERNIGHT. DENIES ANY OTHER CONCERNS. WILL CONTINUE TO MONITOR.
[2020-01-03 05:24] VITALS: BP 114/67
[2020-01-03 07:56] VITALS: BP 126/72
--- NOTE | 2020-01-03 08:00 | O ---
[facility] [place] [address] OPERATIVE REPORT Name: EVE TAMEZ Room #: 437-P ADM IN M.R.#: [id number] Admission: 12/24/19 Attend Phys: Bhupendra Rush MD Discharge: Date of : 51 Report #: [id number] THIS REPORT FOR: cc: Fran Pearl MD, Daniel J. MD Clymer, David J. MD ~ CC: Fran Rush DATE OF SERVICE: 12/31/2019 PREOPERATIVE DIAGNOSIS: Infected left great toe. POSTOPERATIVE DIAGNOSIS: Infected left great toe. PROCEDURE: Left great toe amputation at the mid metatarsal level. SURGEON: Dawson Luis MD INDICATIONS: This 64-year-old gentleman with vascular disease and diabetes has had forefoot problems in the past. He underwent great toe amputation on the opposite right foot in the past with satisfactory result. Now, he has pain and swelling involving the left forefoot. MRI study suggests significant osteomyelitis at the phalanx level with some infection at the MP joint level. There appears to be some inflammation with either osteomyelitis or inflammatory osteitis involving the metatarsal as well. We have discussed these issues at some length. He prefers to go ahead with amputation, and we will extend back to the mid metatarsal level or even farther, if it appears that the bone has significant destruction or involvement. DESCRIPTION OF PROCEDURE: The patient was taken to the operating room where he was placed under general anesthesia. He has continued on his preoperative antibiotic regimen. The left foot, ankle and leg were meticulously prepped and draped. An Esmarch bandage was used to exsanguinate the foot and left at the mid-calf as a gentle tourniquet. A long oblique fishmouth shape skin incision was made. The dissection was extended sharply down to bone, and the toe was initially amputated at the MP joint level. The specimen was passed off the field and cultures obtained. The metatarsal was then better exposed in a subperiosteal dissection. There seemed to be some inflammatory changes at the metatarsal head, but the shaft appeared to be fairly normal without much surrounding inflammation, nor any purulent debris. I elected to transect the metatarsal at about its mid shaft in an oblique fashion. The edges were smoothed to avoid soft tissue pressure. This remaining specimen along with the sesamoids was then passed off the field. The Esmarch bandage was removed and a satisfactory vascular supply throughout the soft tissue bed and the skin edges was noted. Good hemostasis was established with gentle pressure and very [address] [address] OPERATIVE REPORT Name: EVE TAMEZ Room #: 437-P [facility] IN ..#: [id number] Admission: 12/24/19 Attend Phys: Bhupendra Rush MD Discharge: Date of : 51 Report #: [id number] limited use of cautery. The wound was copiously irrigated on multiple occasions. I did not feel a drain was necessary. The wound was then closed using 2-0 Monocryl in the deeper tissues and 3-0 nylon in the skin. A sterile dressing was applied. The patient was then awakened and returned to recovery room in good condition. <ELECTRONICALLY SIGNED> By: Dawson Luis MD 01/03/20 0800 1217 1238 Dawson Luis MD /nt
--- NOTE | 2020-01-03 10:34 | NUR ---
PT UP IN BEDSIDE CHAIR BLOOD SUGARS MONITORED AND S/S INSULIN PER ORDERS. PT NEEDS ORTHO SHOE AND DRESSING CHANGE LEFT GREAT TOE. PT STATES NO PAIN AT THIS TIME.
[2020-01-03 10:46] VITALS: BP 1326/72
[2020-01-03 16:25] VITALS: BP 118/67
--- NOTE | 2020-01-03 16:32 | NUR ---
PT SITTING UP IN BEDSIDE CHAIR WATCHING TV.DRESSING CHANGED TO LEFT GREAT AMPUTATION SITE. PT ALERT X4 NO PAIN AT THIS TIME.
--- NOTE | 2020-01-03 16:43 | NUR ---
PT ASSESSED BY PT AND OT SAFE FOR HOME WITH SERVICES ONCE POST OP SHOE IS PROVIDED. WE ARE AWAITING ID TO INDICATE IF PT CAN BE CHANGED TO ORAL ABX. CLINICAL UPDATE WAS SENT TO [facility] FOR SERVICES UPON DC. PT HAD INDICATED PREVIOUSLY HE INTENDED TO GO TO HIS 'S HOUSE ADDRESS IN PREVIOUS NOTES. SHOULD PT BE MEDICALLY STABLE TO DC HOME THIS EVENING. CONTACT [facility] AT FAX ORDERS TO .
[2020-01-03 19:40] VITALS: BP 130/76
--- NOTE | 2020-01-03 19:56 | NUR ---
VAT CONSULTED FOR A PICC FOR LT ABX AT HOME. A 4FRSLPICC PLACED RUABRACHIAL AND TIP AT [facility] [place] FOR USE PER PROTOCOL
--- NOTE | 2020-01-04 03:25 | NUR ---
PT'S PICC LINE INSERTED.PT DENIED PAIN/N/V SO FAR.DRSG TO HIS L FOOT C/D/I.NO DRAINAGE NOTED SO FAR.URINAL AT BEDSIDE WITH GOOD URINE OUTPUT.BG MONITORED WITH COVERAGE.PT SLEEPING ON HIS BED AT THIS TIME.PT LOOKING FORWARD TO BE DC'D THIS AM.CALL LIGHT WITHIN REACH.
[2020-01-04 10:44] VITALS: BP 104/68
[2020-01-04] MEDS ORDERED: NORCO 5-325 TA1 EAC2 PO (11:28)
[2020-01-04] MEDS ORDERED: ROCEPHIN 11 GM/1001 IV (11:28)
[2020-01-04] MEDS ORDERED: ACETAMINOPHEN325 M1 PO (11:28)
[2020-01-04] MEDS ORDERED: MIRALAX17 GM PO (11:28)
[2020-01-04] MEDS ORDERED: METRO IV 5500 MG/100 IV (11:28)
[2020-01-04] MEDS ORDERED: HUMALOG100 UNIT/1 SUBQ (11:28)
--- NOTE | 2020-01-04 13:21 | NUR ---
PT IS A&OX4, VSS, AND AMBULATE WITH SBA. PT STATES HE FELL 3 MONTHS AGO OVER THE COFFEE TABLE AND BROKE HIS RIGHT GREAT TOE. PT HAS A SINGLE LUMEN PICC LINE IN HIS RIGHT UPPER ARM. PT IS ACHS; NURSE EDUCATED PATIENT ON HAVING MORE CONTROL OVER HIS BLOOD SUGARS. NURSE CHANGED THE PATIENT'S DRESSING AND REPLACED BOOT ON HIS LEFT FOOT, INCISION IS DRY AND INTACT. FALL PRECAUTION IN PLACE, WILL CONTINUE TO MONITOR.
[2020-01-04 14:11] VITALS: BP 104/68
--- NOTE | 2020-01-04 14:25 | NUR ---
DYLAN SPK W/MEL AT [facility], SHE IS ABLE TO ACCEPT PT, "WE'LL GO AHEAD AND GET HIM ON THE SCHEDULE." CM TO FAX ORDERS. PT NOTIFIED, AND PT'S RN NOTIFIED. CM CONFIRMED W/PT THAT HE WILL RTRN HOME OPPOSE TO EX 'S HOUSE.
[2020-01-04 14:35] VITALS: BP 104/68
[2020-01-04 15:47] VITALS: BP 172/100
--- NOTE | 2020-01-04 16:06 | PATH ---
[facility] [address] [place] [address] PATHOLOGY RPT PROCEDURE Name: JOIEVE Room #: 437-P ADM IN M.R.#: [id number] Admission: 12/24/19 Date of : 51 Discharge: Report #: [id number] Path Case #: [id number] LCA Accession Number: [id number] . 01 Material submitted: . hallux - LEFT GREAT TOE. Modifiers: left . 01 Clinical history: . NECROTIC LEFT GREAT TOE . 02 Diagnosis: Toe, left great toe, amputation: - Skin and subcutaneous tissue showing ulceration along with acute inflammation and gangrenous necrosis extending into underlying bone. - Underlying bone with marked acute osteomyelitis. - Inked surgical margin on separate fragment showing mild chronic inflammation as well as reactive bone. (IUV:steve; 01/04/2020) MBDelbert 01/04/2020 1417 Local . 02 Electronically signed: . Angelica Cervantes MD, Pathologist NPI- [id number] . 01 Gross description: . The specimen is received in formalin, labeled "Eve Tamez, left great toe". Received is an amputated digit measuring 7.8 x 3.2 x 3.0 cm in greatest dimensions. The bone margin is smooth and concave in appearance, consistent with disarticulation. The bone and soft tissue margins are inked black. A possible nail is identified displaying a yellow-lopez and soft, thickened appearance. The epidermal surface is pale lopez, sloughing to joaquin-brown and wrinkled in appearance. A full-thickness longitudinal cross-section is submitted from proximal to distal aspects in cassettes A1 through A3, following decalcification. . Also received within the specimen container is an additional segment of bone displaying one blunt, transected margin and one smooth, convex disarticulated margin measuring 4.0 x 2.3 x 2.1 cm in greatest dimensions. The transected margin is inked black. A full-thickness longitudinal cross-section is submitted from transected to disarticulated margin in cassettes A4 and A5, following decalcification. (CAA; 01/03/2020) QAC/QAC 01/04/2020 1414 Local . 02 Pathologist provided ICD-10: L97.529, L98.9, I96, M86.172 . [address] [address] PATHOLOGY RPT PROCEDURE Name: EVE TAMEZ Room #: 437-P ADM IN M.R.#: [id number] Admission: 12/24/19 Date of : 51 Discharge: Report #: [id number] Path Case #: [id number] CPT . [id number], [id number] Specimen Comment: A courtesy copy of this report has been sent to [phone], [phone] Specimen Comment: [phone], Specimen Comment: Report sent to ,DR ANAYA / DR ISBELL Performed at: [address], [place] [id number] MD Ranjith Martinez MD Phone: [phone] Performed at: [address] [id number] MD Angelica Cervantes MD Phone: [phone]
[2020-01-04 16:21] VITALS: BP 163/97
--- NOTE | 2020-01-04 19:05 | NUR ---
I AGREE WITH NURSING ASSESSMENT, AND NURSING NOTE DONE BY LAZARA/JASSON.
--- NOTE | 2020-01-05 15:50 | NUR ---
Call rec'd from Keily WELLER regarding pt's outpt infusion services. Keily martines advised that the outpt iv atb infusions are being covered under mariam as the pt does not have medicare part B benefits or a secondary ins plan. They would be providing services under his part A Medicare benefits for home [place] by Rn,PT and OT as well as checking his amputation site/that he is able to change his own dressing daily. He is high risk for readmission and has limited support. [employer] Coordinator spoke with Faye Zeng in Outpt infusion and the pt has yet to arrive today for his 3pm infusion appt.
--- NOTE | 2020-01-05 16:10 | NUR ---
PT DID NOT SHOW UP FOR HIS 1500 APPT TODAY FOR IV ANTIBIOTICS. CALLED PT WHO SAID HE WAS WAITING FOR HIS TO PICK HIM UP, SAID SHE WAS TO PICK HIM UP AT 2:30. CALLED , KACY AT [phone], WHO DID NOT UNDERSTAND THIS PLAN. SHE WAS UNABLE TO GET PT PICKED UP TIL LATER AND ARRIVAL HERE WOULD BE AFTER [address]. [address] ANAYA WHO SAID IT WOULD BE OK TO START FIRST THING IN THE MORNING. CALLED , KACY (PT'S SOURCE OF TRANSPORTATION), WHO SAID SHE CAN GET PT HERE AT 0800 TOMORROW MORNING. CALLED PT TO MAKE SURE THIS WOULD WORK FOR HIM. HE WAS RELUCTANT BUT STATED IT WOULD BE OK. SO, PLAN IS NOW TO HAVE PT'S FIRST ANTIBIOTICS WITH US START 01/06/20 AT 0800. MEANWHILE, CARYL CONTRERAS, CASE MANAGEMENT, IS WORKING ON PLAN FOR WOUND CARE IN THE HOME. SHE WILL UPDATE PT/ WITH THIS PLAN WHEN FINALIZED.
--- NOTE | 2020-01-06 10:06 | NUR ---
[facility] division human resources manager Nikki has approved case for services and they will call the pt and spouse today to confirm their initial visit in the home this afternoon as pt is getting his iv infusion here this am. Outpt photography assistant Judy updated and she has advised the pt/ to expect a call directly from [facility].
== END 2020-01-04 17:22 | disposition home health service (06) | DRG 617 ==
LOC: ER 09:04 → 4W 13:33 → EROBS 13:33 → 4W 14:34 → 4S 12-31 11:16
PROVIDERS: Emergency Medicine; ADMIT Hospitalist; ATTEND Hospitalist
PROC: 0Y6P0Z0 Detachment at Right 1st Toe, Complete, Open Approach (ICD-10-PCS; principal; 2019-12-31)
PROC: 02HV33Z Insertion of Infusion Device into Superior Vena Cava, Percutaneous Approach (ICD-10-PCS; 2020-01-03)
DX: E11.69 Type 2 diabetes mellitus with other specified complication (principal); L03.116 Cellulitis of left lower limb; L97.829 Non-pressure chronic ulcer of other part of left lower leg with unspecified severity; L97.819 Non-pressure chronic ulcer of other part of right lower leg with unspecified severity; M86.8X7 Other osteomyelitis, ankle and foot; E11.51 Type 2 diabetes mellitus with diabetic peripheral angiopathy without gangrene; L03.032 Cellulitis of left toe; E11.42 Type 2 diabetes mellitus with diabetic polyneuropathy; G92 Toxic encephalopathy; I10 Essential (primary) hypertension; E78.00 Pure hypercholesterolemia, unspecified; Z20.828 Contact with and (suspected) exposure to other viral communicable diseases; E11.65 Type 2 diabetes mellitus with hyperglycemia; Z79.4 Long term (current) use of insulin; Z91.19 Patient's noncompliance with other medical treatment and regimen; Z79.899 Other long term (current) drug therapy
CPT/HCPCS: 10040; 10195; 27000; 50010; 50101; 50386; 50951; 56525; 56527; 57091; 62110; 62900; 70005

== ENCOUNTER → 2020-01-06 | Outpatient (CLI) | payer SELFPAY ==
[~2020-01-06] MED LIST changes: +ACETAMINOPHEN325 M1 PO; +METRO IV 5500 MG/100 IV; +MIRALAX17 GM PO; +NORCO 5-325 TA1 EAC2 PO; +ROCEPHIN 11 GM/1001 IV
[2020-01-06 09:17] VITALS: BP 115/76
--- NOTE | 2020-01-06 13:54 | NUR ---
IN FOR CEFTRIAXONE AND METRONIDAZOLE FOR LT FOOT/ANKLE INFECTION. INCISION TO LT FOOT WELL APPROXIMATED, EDEMATOUS, PINK, NO DRAINAGE. CLEANED WITH NS AND APPLIED GAUZE AND NAVA WRAP. TOLERATED INFUSIONS WITHOUT INCIDENT. RECEIVED GOOD BLOOD RETURN FROM PICC LINE. SITE WNL. ACCOMPANIED PATIENT. TO RETURN TOMORROW AM FOR THE SAME. DISMISSED IN STABLE CONDITION.
== END ==
LOC: OPONC 01-05 10:11
PROVIDERS: ATTEND Specialist
DX: M86.8X7 Other osteomyelitis, ankle and foot (principal)
CPT/HCPCS: 95000

== ENCOUNTER → 2020-01-07 | Outpatient (CLI) | payer SELFPAY ==
[2020-01-07 12:20] VITALS: BP 116/68
--- NOTE | 2020-01-07 12:26 | NUR ---
IN FOR DAILY CEFTRIAXONE AND METRONIDAZOLE INFUSIONS FOR OSTEOMYELITIS LT FOOT/ANKLE. PATIENT DENIED FEVER/CHILLS, NAUSEA, DIARRHEA. DOES HAVE #7 PAIN TO LEFT FOOT. TAKING HYDROCODONE FOR PAIN. TO HUMAN INSIGHTS LEAD ADS MARKETING PRESCRIPTION FOR THIS TODAY. PICC SITE WNL AND DRESSING CHANGED. TOLERATED INFUSIONS WITHOUT INCIDENT. WEEKEND INSTRUCTIONS GIVEN TO PATIENT AND . DISMISSED IN STABLE CONDITION.
== END ==
LOC: OPONC 06:33
PROVIDERS: ATTEND Specialist
DX: M86.8X7 Other osteomyelitis, ankle and foot (principal)
CPT/HCPCS: 95000

== ENCOUNTER → 2020-01-08 | Outpatient (CLI) | payer SELFPAY | LOC: OPONC 06:33 | PROVIDERS: ATTEND Specialist | DX: M86.8X7 Other osteomyelitis, ankle and foot (principal) | CPT/HCPCS: 95000; 95113 ==

== ENCOUNTER → 2020-01-09 | Outpatient (CLI) | payer SELFPAY | LOC: OPONC 06:34 | PROVIDERS: ATTEND Specialist | DX: M86.172 Other acute osteomyelitis, left ankle and foot (principal) | CPT/HCPCS: 95000 ==

== ENCOUNTER → 2020-01-10 | Outpatient (CLI) | payer SELFPAY ==
[2020-01-10 10:30] VITALS: BP 110/67
[2020-01-10 10:48] LABS: HEMATOCRIT 38.7 % (42.0-52.0); HEMOGLOBIN 12.5 gm/dL (14.0-18.0); MCH 24.1 pg (26.0-34.0); MCHC 32.2 g/dL (28.0-37.0); MCV 74.9 fL (80.0-100.0); RBC 5.16 mil/uL (4.50-6.00); RDW 15.6 % (10.5-14.5); WBC 7.7 thou/uL (4.0-11.0)
[2020-01-10 11:09] LABS: ALBUMIN 3.6 g/dL (3.4-5.0); CREATININE 1.2 mg/dL (0.7-1.3); POTASSIUM 4.5 mmol/L (3.5-5.1); TOTAL BILIRUBIN 0.5 mg/dL (0.2-1.0); TOTAL PROTEIN 9.1 g/dL (6.4-8.2)
== END ==
LOC: OPONC 06:34
PROVIDERS: ATTEND Specialist
DX: M86.8X7 Other osteomyelitis, ankle and foot (principal)
CPT/HCPCS: 95000

== ENCOUNTER → 2020-01-11 | Outpatient (CLI) | payer SELFPAY ==
[2020-01-11 10:45] VITALS: BP 127/65
== END ==
LOC: OPONC 06:34
PROVIDERS: ATTEND Specialist
DX: M86.8X7 Other osteomyelitis, ankle and foot (principal); R60.9 Edema, unspecified
CPT/HCPCS: 95000

== ENCOUNTER → 2020-01-12 | Outpatient (CLI) | payer SELFPAY ==
[2020-01-12 08:15] VITALS: BP 107/69
== END ==
LOC: OPONC 06:34
PROVIDERS: ATTEND Specialist
DX: M86.8X7 Other osteomyelitis, ankle and foot (principal)
CPT/HCPCS: 95000

== ENCOUNTER → 2020-01-13 | Outpatient (CLI) | payer SELFPAY ==
[2020-01-13 10:02] VITALS: BP 109/69
== END ==
LOC: OPONC 06:35
PROVIDERS: ATTEND Specialist
DX: M86.8X7 Other osteomyelitis, ankle and foot (principal)
CPT/HCPCS: 95000

== ENCOUNTER → 2020-01-14 | Outpatient (CLI) | payer SELFPAY ==
[2020-01-14 11:49] VITALS: BP 130/74
== END ==
LOC: OPONC 06:35
PROVIDERS: ATTEND Specialist
DX: M86.8X7 Other osteomyelitis, ankle and foot (principal)
CPT/HCPCS: 95000

== ENCOUNTER → 2020-01-16 | Outpatient (CLI) | payer SELFPAY | LOC: OPONC 01-15 15:43 | PROVIDERS: ATTEND Specialist | DX: M86.9 Osteomyelitis, unspecified (principal) | CPT/HCPCS: 95000 ==

== ENCOUNTER → 2020-01-17 | Outpatient (CLI) | payer SELFPAY ==
[2020-01-17 08:40] VITALS: BP 107/53
[2020-01-17 09:19] LABS: HEMATOCRIT 36.8 % (42.0-52.0); HEMOGLOBIN 11.7 gm/dL (14.0-18.0); MCH 24.2 pg (26.0-34.0); MCHC 31.7 g/dL (28.0-37.0); MCV 76.2 fL (80.0-100.0); RBC 4.82 mil/uL (4.50-6.00); RDW 16.1 % (10.5-14.5); WBC 6.7 thou/uL (4.0-11.0)
[2020-01-17 09:33] LABS: ALBUMIN 3.2 g/dL (3.4-5.0); CALCIUM 8.9 mg/dL (8.5-10.1); CREATININE 1.1 mg/dL (0.7-1.3); POTASSIUM 3.9 mmol/L (3.5-5.1); TOTAL BILIRUBIN 0.3 mg/dL (0.2-1.0); TOTAL PROTEIN 7.7 g/dL (6.4-8.2)
--- NOTE | 2020-01-17 09:55 | NUR ---
HERE FOR DAILY IV CEFTRIAXONE AND METRONIDAZOLE INFUSIONS. REPORTS DOING WELL. STATES DID NOT RECEIVE HIS FRIDAY INFUSION IN THE ED D/T SOME CONFUSION. DENIES N/V/DIARRHEA, FEVER/CHILLS. HAS OFF AND ON PAIN AND NEUROPATHY ISSUES LT FOOT. STATES FOOT LOOKS GOOD. NO HOME HEALTH VISITS PER PT THIS LAST WEEK. UNCLEAR ON STATUS ON THAT. PT TOLERATED TODAY'S INFUSION WITHOUT INCIDENT. LABS DRAWN PER PICC. DISMISSED IN STABLE CONDITION. SCHEDULED TO RETURN AGAIN TOMORROW AT 0800.
== END ==
LOC: OPONC 08:04
PROVIDERS: ATTEND Specialist
DX: M86.9 Osteomyelitis, unspecified (principal)
CPT/HCPCS: 95000

== ENCOUNTER → 2020-01-18 | Outpatient (CLI) | payer SELFPAY ==
[2020-01-18 10:35] VITALS: BP 127/70
--- NOTE | 2020-01-18 10:39 | NUR ---
IN FOR DAILY CEFTRIAXONE AND METRONIDAZOLE INFUSIONS FOR LT GREAT TOE OSTEOMYELITIS. STATED FEELING WELL. DENIED DIARRHEA, NAUSEA, FEVER/CHILLS, PAIN. TOLERATED INFUSION WITHOUT INCIDENT. PICC SITE WITHIN NORMAL LIMITS. DISMISSED IN STABLE CONDITION.
== END ==
LOC: OPONC 08:40
PROVIDERS: ATTEND Specialist
DX: M86.8X7 Other osteomyelitis, ankle and foot (principal)
CPT/HCPCS: 95000

== ENCOUNTER → 2020-01-19 | Outpatient (CLI) | payer SELFPAY ==
[2020-01-19 08:33] VITALS: BP 108/58
--- NOTE | 2020-01-19 10:00 | NUR ---
IN FOR DAILY IV CEFTRIAXONE AND METRONIDAZOLE. REPORTS DOING WELL. DENIES ANY ISSUES. TOLERATED INFUSIONS WITHOUT INCIDENT. SCHEDULED TO RETURN AGAIN TOMORROW. STATES SEES DR. BERNAL AND DR. CARMITA ANAYA AGAIN NEXT WEEK. DISMISSED IN STABLE CONDITION.
== END ==
LOC: OPONC 08:03
PROVIDERS: ATTEND Specialist
DX: M86.8X7 Other osteomyelitis, ankle and foot (principal)
CPT/HCPCS: 95000

== ENCOUNTER → 2020-01-20 | Outpatient (CLI) | payer SELFPAY ==
[2020-01-20 14:56] VITALS: BP 120/67
--- NOTE | 2020-01-20 14:58 | NUR ---
IN FOR DAILY CEFTRIAXONE AND METRONIDAZOLE INFUSIONS FOR LT GREAT TOE OSTEOMYELITIS. DENIED PAIN, N/V/DIARRHEA, FEVER/CHILLS. TOLERATED INFUSIONS WITHOUT INCIDENT. PICC SITE WNL. IN GOOD SPIRITS. DISMISSED IN STABLE CONDITION.
== END ==
LOC: OPONC 08:15
PROVIDERS: ATTEND Specialist
DX: M86.9 Osteomyelitis, unspecified (principal)
CPT/HCPCS: 95000

== ENCOUNTER → 2020-01-21 | Outpatient (CLI) | payer SELFPAY ==
[2020-01-21 08:57] VITALS: BP 115/66
--- NOTE | 2020-01-21 10:25 | NUR ---
IN FOR DAILY CEFTRIAXONE AND METRONIDAZOLE INFUSIONS FOR LT GREAT TOE OSTEOMYELITIS. STATED FEELING WELL. DENIED FEVER/CHILLS, DIARRHEA, NAUSEA AND PAIN. TOLERATED INFUSIONS WITHOUT INCIDENT. CHANGED PICC DRESSING. SITE WNL. DISMISSED IN STABLE CONDITION.
== END ==
LOC: OPONC 08:57
PROVIDERS: ATTEND Specialist
DX: M86.9 Osteomyelitis, unspecified (principal)
CPT/HCPCS: 95000

== ENCOUNTER → 2020-01-22 | Outpatient (CLI) | payer SELFPAY | LOC: OPONC 08:00 | PROVIDERS: ATTEND Specialist | DX: M86.8X7 Other osteomyelitis, ankle and foot (principal) | CPT/HCPCS: 95000; 95113 ==

== ENCOUNTER → 2020-01-24 | Outpatient (CLI) | payer SELFPAY ==
[2020-01-24 08:35] VITALS: BP 115/63
[2020-01-24 08:52] LABS: HEMATOCRIT 37.5 % (42.0-52.0); HEMOGLOBIN 12.1 gm/dL (14.0-18.0); MCH 24.5 pg (26.0-34.0); MCHC 32.2 g/dL (28.0-37.0); RBC 4.94 mil/uL (4.50-6.00); RDW 16.8 % (10.5-14.5); WBC 6.7 thou/uL (4.0-11.0)
[2020-01-24 09:03] LABS: ALBUMIN 3.2 g/dL (3.4-5.0); CALCIUM 8.7 mg/dL (8.5-10.1); CREATININE 1.1 mg/dL (0.7-1.3); TOTAL BILIRUBIN 0.2 mg/dL (0.2-1.0); TOTAL PROTEIN 7.5 g/dL (6.4-8.2)
--- NOTE | 2020-01-24 09:55 | NUR ---
HERE FOR DAILY IV CEFTRIAXONE AND METRONIDAZOLE. REPORTS DOING WELL, FEELING WELL. STATES CHANGING HIS OWN DRESSING AND SITE LOOKS GOOD, PT STATES STILL HAS STITCHES. ASKED PT WHEN HE IS SEEING DR. BELTRAN AND PT HAD NO IDEA HE NEEDED TO DO SO. CALLED KACY, EX-, WHO HAS BEEN HELPING PT AND LEFT MESSAGE WITH HER TO PLEASE SCHEDULE HIS HOSPITAL F/U WITH DR. BELTRAN WHICH WAS DUE 2 WEEKS POST DISCHARGE. LEFT PHONE NUMBER WITH KACY AND ASKED PT TO BE SURE THIS GETS SET UP. THIS NURSE IS GOING BY THE DISCHARGE PAPERS THAT WERE GIVEN TO THE PATIENT. PT ALSO REPORTS THAT HE DID NOT COME FOR HIS INFUSION ON FRIDAY BECAUSE THE ED WAS SO BUSY ON FRIDAY THAT HE HAD A LONG WAIT TO START THE INFUSION. LET PT KNOW THAT IF HE COULD COME TO US EARLY IN THE DAY THAT MAY AVOID THIS ISSUE. PT STATES HE UNDERSTANDS BUT IS DEPENDENT ON A RIDE AND HIS MEDICINAL CHEMIST, KACY, WAS UPSET ABOUT THE WAIT ON FRIDAY SO SHE DID NOT BRING HIM ON FRIDAY. PT TOLERATED TODAY'S INFUSIONS WITHOUT INCIDENT. DENIES N/V/DIARRHEA, FEVER/CHILLS. DISMISSED IN STABLE CONDITION. SCHEDULED TO RETURN AGAIN IN THE MORNING.
== END ==
LOC: OPONC 08:03
PROVIDERS: ATTEND Specialist
DX: M86.9 Osteomyelitis, unspecified (principal)
CPT/HCPCS: 95000

== ENCOUNTER → 2020-01-25 | Outpatient (CLI) | payer SELFPAY ==
[2020-01-25 08:37] VITALS: BP 132/79
--- NOTE | 2020-01-25 08:39 | NUR ---
IN FOR DAILY CEFTRIAXONE AND METRONIDAZOLE INFUSIONS FOR LT GREAT TOE OSTEOMYELITIS. STATED FEELING WELL. DENIED PAIN, N/V, F/C, DIARRHEA. VITAL SIGNS GOOD. TOLERATED INFUSIONS WITHOUT INCIDENT. REINFORCED THE NEED TO MAKE AN APPT WITH DR. BELTRAN ORDERED ON DISCHARGE PAPERWORK. STATED UNDERSTANDING. HIS KACY IS ASSISTING WITH HIS CARE. DISMISSED IN STABLE CONDITION.
== END ==
LOC: OPONC 08:07
PROVIDERS: ATTEND Specialist
DX: M86.9 Osteomyelitis, unspecified (principal)
CPT/HCPCS: 95000

== ENCOUNTER → 2020-01-26 | Outpatient (CLI) | payer SELFPAY ==
[2020-01-26 08:30] VITALS: BP 115/67
--- NOTE | 2020-01-26 09:50 | NUR ---
HERE FOR DAILY IV CEFTRIAXONE/METRONIDAZOLE INFUSIONS. REPORTS DOING WELL, FEELING WELL. DENIES N/V/DIARRHEA, FEVER/CHILLS. STATES EATING WELL. REPORTS SOME HIGH BLOOD SUGARS. PICC SITE LOOKS GOOD. TOLERATED TODAY'S INFUSIONS WITHOUT INCIDENT. GOING TO DR. BELTRAN'S OFFICE FROM HERE FOR EVAL AND TO HAVE STITCHES REMOVED. SEEING DRS. VIZCARRA AND GABE ANAYA IN OFFICE TOMORROW. DISMISSED IN STABLE CONDITION. WILL RETURN AGAIN TOMORROW AT 0900.
== END ==
LOC: OPONC 01-23 13:15
PROVIDERS: ATTEND Specialist
DX: M86.8X7 Other osteomyelitis, ankle and foot (principal)
CPT/HCPCS: 95000

== ENCOUNTER → 2020-01-27 | Outpatient (CLI) | payer SELFPAY ==
[2020-01-27 12:38] VITALS: BP 114/62
--- NOTE | 2020-01-27 12:40 | NUR ---
IN FOR DAILY CEFTRIAXONE AND METRONIDAZOLE INFUSIONS. STATED FEELING WELL. DENIED PAIN, NAUSEA, DIARRHEA, FEVER, CHILLS. TOLERATED INFUSIONS WITHOUT INCIDENT. TO RETURN TOMORROW FOR THE SAME. DISMISSED IN STABLE CONDITION.
== END ==
LOC: OPONC 08:13
PROVIDERS: ATTEND Specialist
DX: M86.9 Osteomyelitis, unspecified (principal)
CPT/HCPCS: 95000

== ENCOUNTER → 2020-01-28 | Outpatient (CLI) | payer SELFPAY ==
[2020-01-28 08:40] VITALS: BP 131/70
--- NOTE | 2020-01-28 10:30 | NUR ---
HERE FOR DAILY IV CEFTRIAXONE/METRONIDAZOLE INFUSION. REPORTS DOING WELL. DENIES N/V/DIARRHEA, FEVER/CHILLS. STATES FOOT LOOKS GOOD. SAW DR. ANAYA YESTERDAY WHO REMOVED STITCHES IN OFFICE PER PT. PICC SITE LOOKS GOOD. TOLERATED INFUSION WITHOUT INCIDENT. DISMISSED IN STABLE CONDITION.
== END ==
LOC: OPONC 08:14
PROVIDERS: ATTEND Specialist
DX: M86.9 Osteomyelitis, unspecified (principal)
CPT/HCPCS: 95000

== ENCOUNTER → 2020-01-31 | Outpatient (CLI) | payer SELFPAY ==
[2020-01-31 08:45] VITALS: BP 115/72
--- NOTE | 2020-01-31 10:15 | NUR ---
HERE FOR DAILY IV CEFTRIAXONE AND METRONIDAZOLE INFUSIONS. REPORTS DOING WELL, FEELING WELL OTHER THAN HAVING A LOW FSBG YESTERDAY. STATES DID NOT TAKE HIS EVENING INSULIN LAST NOC AND BLOOD GLUCOSE UP TO ABOUT 200 TODAY. DENIES N/V/DIARRHEA, FEVER/CHILLS. EATING/DRINKING WELL. DID NOT COME FOR INFUSION BOTH SAT AND SUN. HAD LEFT PT A MESSAGE ON FRIDAY WITH NO RETURN CALL. PT WAS AWARE OF PLAN SET UP FOR INFUSION BUT STATES HAD A FLAT TIRE ON SAT AND COULD NOT GET A RIDE FROM HIS FAMILY ON FRIDAY D/T BIRTHDAY EVENT FOR HIS DAUGHTER. INFUSION TOLERATED TODAY WITHOUT INCIDENT. NO BLOOD RETURN FROM PICC SO LABS NOT DRAWN TODAY. WILL ASSESS AGAIN TOMORROW AND TRY THEN. PICC FLUSHES EASILY. PT DISMISSED IN STABLE CONDITION. SCHEDULED TO RETURN AGAIN IN THE MORNING.
== END ==
LOC: OPONC 08:18
PROVIDERS: ATTEND Specialist
DX: M86.9 Osteomyelitis, unspecified (principal)
CPT/HCPCS: 95000

== ENCOUNTER → 2020-02-01 | Outpatient (CLI) | payer SELFPAY ==
[2020-02-01 08:31] VITALS: BP 122/74
[2020-02-01 08:54] LABS: HEMATOCRIT 40.5 % (42.0-52.0); RBC 5.4 mil/uL (4.50-6.00); RDW 16.7 % (10.5-14.5); WBC 6.6 thou/uL (4.0-11.0)
[2020-02-01 09:12] LABS: ALBUMIN 3.6 g/dL (3.4-5.0); CALCIUM 9.4 mg/dL (8.5-10.1); POTASSIUM 4.4 mmol/L (3.5-5.1); TOTAL BILIRUBIN 0.4 mg/dL (0.2-1.0); TOTAL PROTEIN 8.1 g/dL (6.4-8.2)
--- NOTE | 2020-02-01 10:56 | NUR ---
IN FOR DAILY CEFTRIAXONE AND METRONIDAZOLE INFUSIONS FOR LT GREAT TOE OSTEOMYELITIS. STATED FEELING WELL. DENIED FEVER/CHILLS, NAUSEA, DIARRHEA, PAIN. TOLERATED INFUSIONS WITHOUT INCIDENT. UNABLE TO GET BLOOD RETURN FROM PICC LINE. LABS DRAWN PERIPHERALLY. TO RETURN TOMORROW FOR THE SAME. DISMISSED IN STABLE CONDITION.
== END ==
LOC: OPONC 08:08
PROVIDERS: ATTEND Specialist
DX: M86.9 Osteomyelitis, unspecified (principal)
CPT/HCPCS: 95000

== ENCOUNTER → 2020-02-02 | Outpatient (CLI) | payer SELFPAY ==
[2020-02-02 09:25] VITALS: BP 82/47
[2020-02-02 09:55] VITALS: BP 96/60
--- NOTE | 2020-02-02 10:50 | NUR ---
HERE FOR DAILY IV CEFTRIAXONE/METRONIDAZOLE INFUSIONS. BP NOTED TO BE LOW UPON ARRIVAL AND HR UP. PT STATES HE IS FEELING WELL BUT DOES ADMIT TO SOME OFF AND ON LIGHTHEADEDNESS. DENIES N/V/DIARRHEA, FEVER/CHILLS. STATES FOOT LOOKS GOOD. STATES APPETITE COMES AND GOES. TOOK VS 30 MIN POST ARRIVAL AND BP UP TO 96/60, HR 96. ENCOURAGED PT TO DRINK PLENTY OF FLUIDS. NURSE TO EVAL AGAIN TOMORROW. PT ALSO SEES DR. ANAYA TOMORROW. TOLERATED INFUSIONS WITHOUT INCIDENT. DISMISSED IN STABLE CONDITION.
== END ==
LOC: OPONC 09:04
PROVIDERS: ATTEND Specialist
DX: M86.8X7 Other osteomyelitis, ankle and foot (principal)
CPT/HCPCS: 95000

== ENCOUNTER → 2020-02-03 | Outpatient (CLI) | payer SELFPAY ==
[2020-02-03 13:34] VITALS: BP 113/66
--- NOTE | 2020-02-03 15:00 | NUR ---
IN FOR CEFTRIAXONE AND METRONIDAZOLE INFUSIONS FOR LT GREAT TOE OSTEOMYELITIS. DENIED PAIN, N/V, F/C, DIARRHEA. STATED HAS A FUNNY TASTE IN HIS MOUTH AFTER GETTING THE METRONIDAZOLE. TOLERATED BOTH INFUSIONS WITHOUT INCIDENT. HAS APPT. WITH DR. ANAYA THIS AFTERNOON AND SAID HE MIGHT BE SWITCHED TO ORAL ATIBIOTICS. SCHEDULED TO RETURN TOMORROW FOR THE SAME. DISMISSED IN STABLE CONDITION.
== END ==
LOC: OPONC 09:27
PROVIDERS: ATTEND Specialist
DX: M86.9 Osteomyelitis, unspecified (principal)
CPT/HCPCS: 95000